=== PATIENT | female | born 1975 | race American Indian/Alaskan Native ===

== ENCOUNTER 2021-06-13 06:21 | Inpatient (IN) | payer OTHER ==
[2021-06-11 10:22] LABS: Basophils # (Auto) 0.1 K/mm3 (0.0-0.1); Eosinophils # (Auto) 0.1 K/mm3 (0.0-0.4); Hematocrit 35.1 % (30.3-42.9); Hemoglobin 10.9 gm/dl (10.1-14.3); Lymphocytes # (Auto) 1.6 K/mm3 (1.2-5.4); Lymphocytes % (Auto) 29.4 % (13.4-35.0); Mean Corpuscular HGB Conc 31 % (30-34); Mean Corpuscular Volume 79 fl (79-97); Monocytes # (Auto) 0.3 K/mm3 (0.0-0.8); Monocytes % (Auto) 6.1 % (0.0-7.3); Platelet Count 404 K/mm3 (140-440); Red Blood Count 4.43 M/mm3 (3.65-5.03); Red Cell Distribution Width 14.9 % (13.2-15.2)
--- NOTE | 2021-06-11 11:21 | Anesthesia Consultation ---
Anesthesia Consult and Med Hx Date of service: 06/13/21 - Airway Anesthetic Teeth Evaluation: Good (Braces) ROM Head & Neck: Adequate Mental/Hyoid Distance: Adequate Mallampati Class: Class II Intubation Access Assessment: Good - Pre-Operative Health Status ASA Pre-Surgery Classification: ASA2 Proposed Anesthetic Plan: General Nerve Block: TAP (Pt had lipo last Fall) - Pulmonary Hx Smoking: No Hx Sleep Apnea: No - Central Nervous System Hx Psychiatric Problems: No - Gastrointestinal Hx Gastroesophageal Reflux Disease: No - Hematic Hx Anemia: Yes (10.9/35.1) Hx Sickle Cell Disease: No - Other Systems Hx Alcohol Use: Yes (Occas) Hx Cancer: No Hx Obesity: Yes
[~2021-06-13 06:21] MED LIST: ACETAMINOPHEN 500 MG TAB PO NR; CELECOXIB 200 MG CAP PO NR; GABAPENTIN 300 MG CAP PO NR; LACTATED RINGERS 1,000 ML IV SCH; MAGNESIUM OXIDE 400 MG TAB PO NR; MIDAZOLAM 2 MG/2 ML INJ IV NR; fentaNYL 100 MCG/2 ML INJ IV NR
[2021-06-13] MEDS ORDERED: SODIUM CHLORIDE 0.9% IRR 1,500 ML BOTTLE IR ONE ×2 (07:18)
[2021-06-13] MEDS ORDERED: BUPIVACAINE/PF (0.25%) 2.5 MG/ML 30 ML VIAL INFILTRATI ONE (07:21)
[2021-06-13] MEDS ORDERED: dexAMETHasone 4 MG/ML VIAL ONE (07:21)
[2021-06-13] MEDS ORDERED: ROCURONIUM 50 MG/5 ML INJ IV ONE (07:31)
[2021-06-13] MEDS ORDERED: LIDOCAINE MPF (2%) 20 MG/1 ML VIAL 5 ML ONE (07:31)
[2021-06-13] MEDS ORDERED: ONDANSETRON 4 MG/2 ML INJ ONE (07:31)
[2021-06-13] MEDS ORDERED: fentaNYL 100 MCG/2 ML INJ ONE (07:32)
[2021-06-13] MEDS ORDERED: HYDROmorphone 1 MG/1 ML INJ ONE (07:32)
[2021-06-13] MEDS ORDERED: propofoL 200 MG/20 ML VIAL IV ONE (07:32)
--- NOTE | 2021-06-13 07:33 | Anesthesia Day of Surgery ---
Anesthesia Day of Surgery - Day of Surgery Patient Examined: Yes Patient H&P Reviewed: Yes Patient is NPO: Yes
[2021-06-13] MEDS ORDERED: CITRIC ACID-SOD CITRATE 500 ML IV ONE (07:39)
[2021-06-13] MEDS ORDERED: HYDROmorphone 1 MG/1 ML INJ IV PRN ×2 (08:00)
[2021-06-13] MEDS ORDERED: ceFAZolin/Water 2 GM/20 ML 2 GM/20 ML SYRINGE IV NR (08:00)
[2021-06-13] MEDS ORDERED: ONDANSETRON 4 MG/2 ML INJ IV PRN (08:00)
[2021-06-13] MEDS ORDERED: ceFAZolin/Water 2 GM/20 ML 2 GM/20 ML SYRINGE IV ONE (08:11)
--- NOTE | 2021-06-13 08:19 | History and Physical Report ---
History of Present Illness Date of examination: 06/13/21 Date of admission: 06/13/21 06:21 Chief complaint: I have heavy bleeding History of present illness: Pt is a 46 year old who presents today for TOMI secondary to menorrhagia and large uterine fibroids. Pt has had an ultrasound that showed a 24 cm fundal height. She presents today for definitive therapy. Past History Past Medical History: No medical history Past Surgical History: No surgical history Social history: Medications and Allergies Allergies Allergy/AdvReac Type Severity Reaction Status Date / Time amoxicillin Allergy Seizure Verified 06/06/21 17:15 gentamicin Allergy Seizure Verified 06/06/21 17:15 Home Medications Medication Instructions Recorded Confirmed Last Taken Type No Known Home Medications [No 06/06/21 06/06/21 Unknown History Reported Home Medications] Active Meds: Active Medications Acetaminophen (Acetaminophen 500 Mg Tab) 1,000 mg PO ONCE NR Stop: 06/13/21 20:00 Last Admin: 06/13/21 06:57 Dose: 1,000 mg Celecoxib (Celecoxib 200 Mg Cap) 400 mg PO PREOP NR Stop: 06/13/21 20:00 Last Admin: 06/13/21 06:58 Dose: 400 mg Fentanyl (Fentanyl 100 Mcg/2 Ml Inj) 100 mcg IV ONCE NR Stop: 06/13/21 12:00 Gabapentin (Gabapentin 300 Mg Cap) 300 mg PO PREOP NR Stop: 06/13/21 13:00 Last Admin: 06/13/21 06:56 Dose: 300 mg Hydromorphone HCl (Hydromorphone 1 Mg/1 Ml Inj) 0.25 mg IV Q10MIN PRN PRN Reason: Pain, Moderate (4-6) Stop: 06/13/21 18:00 Hydromorphone HCl (Hydromorphone 1 Mg/1 Ml Inj) 0.5 mg IV Q10MIN PRN PRN Reason: Pain , Severe (7-10) Stop: 06/13/21 18:00 Lactated Ringer's (Lactated Ringers) 1,000 mls @ 125 mls/hr IV DIRECT J CARLOS Last Admin: 06/13/21 06:59 Dose: 125 mls/hr Magnesium Oxide (Magnesium Oxide 400 Mg Tab) 400 mg PO ONCE NR Stop: 06/13/21 13:00 Last Admin: 06/13/21 06:59 Dose: 400 mg Methocarbamol (Methocarbamol 750 Mg Tab) 1,500 mg PO ONCE NR Stop: 06/13/21 13:00 Last Admin: 06/13/21 06:57 Dose: 1,500 mg Midazolam HCl (Midazolam 2 Mg/2 Ml Inj) 2 mg IV PREOP NR Stop: 06/13/21 23:59 Ondansetron HCl (Ondansetron 4 Mg/2 Ml Inj) 4 mg IV ONCE PRN PRN Reason: Nausea And Vomiting Stop: 06/13/21 17:00 Review of Systems All systems: negative - Constitutional fatigue - Genitourinary Genitourinary: dysmenorrhea, menorrhagia Menstruation: currently menstrual Exam Vital Signs Temp Pulse Resp BP Pulse Ox 98.9 F 79 16 125/77 100 06/11/21 09:50 06/11/21 09:50 06/11/21 09:50 06/11/21 09:50 06/11/21 09:50 - General physical appearance Positive: well developed, well nourished, no distress - Eyes Positive: PERRL, normal occular movement - ENT Positive: normal pinna, normal nares, normal mucosa, no hearing loss, no congestion - Respiratory Positive: normal expansion, normal respiratory effort, clear to auscultation - Cardiovascular Rhythm: regular Heart Sounds: Present: S1 & S2. Absent: rub, click - Extremities Extremities: no ischemia, pulses symmetrical, No edema - Breasts Breasts: deferred - Abdomen Abdomen: Present: soft, bowel sounds normal, masses - Genitourinary Female Genitourinary: other (markedly e nlarged) Results - Labs 06/11/21 09:55 Assessment and Plan PT here with fibroids and menorrhagia. Pt is consented for TOMI. Will proceed with surgery as scheduled.
[2021-06-13] MEDS ORDERED: dexAMETHasone 20 MG/5 ML VIAL ONE (08:48)
[2021-06-13] MEDS ORDERED: VASOPRESSIN 20 UNIT/1 ML INJ ONE (09:08)
[2021-06-13] MEDS ORDERED: SODIUM CHLORIDE 0.9% 100 ML ONE (09:08)
[2021-06-13] MEDS ORDERED: SODIUM CHLORIDE 0.9% 100 ML IVPB IV ONE (09:12)
[2021-06-13] MEDS ORDERED: VASOPRESSIN 20 UNIT/1 ML INJ IM ONE (09:13)
[2021-06-13] MEDS ORDERED: CITRIC ACID-SOD CITRATE SOLN 500 ML IV SOLN IV ONE (09:18)
[2021-06-13] MEDS ORDERED: NEOSTIGMINE 10MG/10 ML INJ MDV ONE (10:11)
[2021-06-13] MEDS ORDERED: GLYCOPYRROLATE 0.4 MG/2 ML INJ ONE ×2 (10:11)
[2021-06-13] MEDS ORDERED: LACTATED RINGERS 1,000 ML ONE (10:27)
--- NOTE | 2021-06-13 11:03 | Operative Report ---
Operative Report Operative Report: Preoperative diagnosis: Uterine fibroids Postoperative diagnosis: Same Procedure: Supracervical abdominal hysterectomy with RSO Surgeon: Dr. Madina Powell Replanting Machine Crewman: Lindsey Urbina MD EBL: 200 cc Urine output: 350 cc IV fluids: 1200 cc LR Cell saver return: 0 mL Findings: Markedly enlarged 24 week uterus secondary to multiple uterine fibroids of various sizes Specimens: Uterus, right tube and ovary Complications: Removal of right ovary secondary to enclosure with fibroid Procedure: The patient was admitted to the OR with IV running and in place. She was properly identified as herself. She was given general anesthesia without difficulty. She was then put a [place] catheter was in place and she was prepped and draped in normal sterile fashion. This incision was then made with the scalpel and carried to underlying fascia using the scalpel and the Bovie. Fascia was incised in midline and the incision was extended bilaterally using the curved Ellsworth scissors. The fascia was then dissected from the underlying rectus muscles in a series of sharp and blunt dissection. The peritoneum was entered sharply using the Metzenbaum scissors. The peritoneal incision was then extended superiorly and inferiorly. The uterus was grasped and delivered through the incision anteriorly. Multiple fibroids were noted some were pedunculated others were intramural. The largest fibroid appeared to be in the posterior wall of the uterus. At this point the uterus was injected with Pitressin solution in multiple areas totaling 25 cc. A large Luis retractor was placed into the incision, and the bowel was packed away with moist laparotomy sponges. Attention was first turned to the round ligaments b ilaterally they were grasped and transected with the LigaSure. Attention was turned to the right adnexa the broad ligament was dissected out however it was noted that there was a large fibroid adherent to the ovary. In trying to dissect the ovary away from the fibroid the IP ligament was compromised, such that the ovary had to be taken with the specimen. Attention was then turned to the left adnexa where there was a small fibroid just anterior to the uterine arteries on the left. On this side, the round ligament was identified suture- ligated and then transected using the LigaSure the broad ligament was dissected and the utero-ovarian artery was grasped cauterized and then transected. The left ovary was placed to the side. Following this the bladder flap was created anteriorly and the bladder pushed away using a moist sponge. The uterine arteries were then skeletonized bilaterally. Each uterine artery was grasped cauterized and transected using the LigaSure. Once this was done, decision was then made to amputate the uterus and convert the procedure to a supracervical hysterectomy. The uterus was then amputated at the level of the cervix with a scalpel. The specimen was then handed off. The cervical stump was grasped with a tenaculum, and then oversewn with a running suture of 0 Vicryl. The abdomen was then copiously irrigated for excellent hemostasis. A piece of bio defense was then placed over the cervical stump. Following this the all instruments were removed from the patient's abdomen. The muscles were reapproximated in a running fashion. Following this the fascia was closed in a running fashion using 0 Vicryl. Tissue was then copiously irrigated. Skin was closed in a running fashion using 3-0 Monocryl. The sponge lap needle and instrument counts were correct 2. The patient tolerated the procedure well. She was taken to recovery in stable condition.
[2021-06-13] MEDS ORDERED: MORPHINE 4 MG/1 ML INJ IV PRN (15:32)
[2021-06-13] MEDS ORDERED: ACETAMINOPHEN 325 MG TAB PO PRN (15:32)
[2021-06-13] MEDS ORDERED: ONDANSETRON 4 MG ODT TAB PO PRN (15:32)
[2021-06-13] MEDS: LACTATED RINGERS 1000 ML IV SOLN IV SCH ×2 (16:05→22:47)
[2021-06-13] MEDS: oxyCODONE /ACETAMINOPHEN 5-325MG TAB PO PRN ×2 (16:05→22:49)
[2021-06-13] MEDS ORDERED: ESTRADIOL 0.1 MG/24 HR PATCH WEEKLY TD SCH (18:00)
--- NOTE | 2021-06-13 18:10 | Post Anesthesia Evaluation ---
- Post Anesthesia Evaluation Patient Participated: Yes Airway Patent: Yes Stable Respiratory Function: Yes Nausea/Vomiting: No Temp > 96.8F: Yes Pain Manageable: Yes Adequeate Hydration: Yes Anesthesia Complications: No Block Receding Appropriately: Yes Patient on Ventilator: No
[2021-06-13] MEDS: DOCUSATE SODIUM 100 MG CAP PO SCH (22:47)
[2021-06-14] MEDS: IBUPROFEN 800 MG TAB PO PRN ×2 (04:32→12:36)
[2021-06-14 04:59] LABS: Hematocrit 29.7 % (30.3-42.9); Hemoglobin 9.8 gm/dl (10.1-14.3)
[2021-06-14] MEDS: LACTATED RINGERS 1000 ML IV SOLN IV SCH (06:04)
[2021-06-14] MEDS: oxyCODONE /ACETAMINOPHEN 5-325MG TAB PO PRN ×2 (08:21→17:32)
[2021-06-14] MEDS: MAGNESIUM HYDROXIDE (MOM) ORAL LIQD UDC PO PRN (08:21)
[2021-06-14] MEDS: DOCUSATE SODIUM 100 MG CAP PO SCH (08:22)
--- NOTE | 2021-06-14 14:02 | Event Note ---
Date: 06/14/21 A: POD#1; S/P TOMI P: Continue current orders Voiding without difficulty Tolerating po solids/fluids Passing some flatus Continue to ambulate as tolerated Anticipate d/c home tomorrow S: "I feel pretty good, trying to get some more of this gas out". "Pain is ok" O: VSS Resting comfortably, no acute distress noted
[2021-06-15] MEDS: IBUPROFEN 800 MG TAB PO PRN (00:25)
[2021-06-15] MEDS: DOCUSATE SODIUM 100 MG CAP PO SCH ×2 (00:25→10:40)
[2021-06-15] MEDS: oxyCODONE /ACETAMINOPHEN 5-325MG TAB PO PRN ×2 (05:52→14:43)
[2021-06-15] MEDS: MAGNESIUM HYDROXIDE (MOM) ORAL LIQD UDC PO PRN (05:53)
--- NOTE | 2021-06-15 14:44 | Discharge Summary ---
Providers - Providers Date of Admission: 06/13/21 06:21 Date of discharge: 06/15/21 Attending physician: IVANA WAGNER Primary care physician: [facility] [facility] [employer] [facility] Hospitalization Reason for admission: other (menorrhagia) Procedure: other (TOMI) Episiotomy: none Incision: dressed (no shadow drainage or bleeding noted) Discharge diagnosis: other (S/P TOMI) Hospital course: Pt is a 46 year old who presents today for TOMI secondary to menorrhagia and large uterine fibroids. Pt has had an ultrasound that showed a 24 cm fundal height. She presents today for definitive therapy. Post-op course has been uncomplicated, tolerating po well, voiding and has had a BM. Has met d/c criteria on POD#2. Condition at discharge: Stable Disposition: 01 HOME / SELF CARE / HOMELESS - Discharge Diagnoses (1) S/P TOMI (total abdominal hysterectomy) Status: Acute (2) Anemia Status: Acute Qualifiers: Anemia type: other cause Other causes of anemia: acute posthemorrhagic Qualified Code(s): D62 - Acute posthemorrhagic anemia Comment: Asymptomatic Increase iron rich foods into diet Plan - Discharge Medications Prescriptions: Ibuprofen [Motrin] 800 mg PO Q8HR PRN #60 tablet PRN Reason: Pain , Severe (7-10) oxyCODONE /ACETAMINOPHEN [Percocet 5/325] 1 tab PO Q6HR PRN #30 tablet PRN Reason: Pain - Provider Discharge Summary Activity: routine, no sex for 6 weeks, no heavy lifting 4 weeks, no strenuous exercise Diet: other (Iron rich diet) Instructions: routine Additional instructions: [] Smoking cessation referral if applicable(refer to patient education folder for contact #) [] Refer to [facility] Booklet Call your doctor immediately for: * Fever > 100.5 * Heavy vaginal bleeding ( >1 pad per hour) * Severe persistent headache * Shortness of breath * Reddened, hot, painful area to leg or breast * Drainage or odor from incision. * Keep incision clean and dry at all times and follow doctor's instructions regarding bathing/showering * Contact office on 06/16/21 concerning dressing removal and further follow-up instructions - Follow up plan Follow up: PRIMARY CARE, [Primary Care Provider] - 48 Hours
[2021-06-15 16:03] VITALS: BP 125/89
== END 2021-06-15 16:20 | disposition home or self-care (01) | DRG 742 ==
LOC: 3A 06:21 → OB 11:07
PROVIDERS: ADMIT Obstetrics & Gynecology; ATTEND Obstetrics & Gynecology
PROC: 0UT90ZL Resection of Uterus, Supracervical, Open Approach (ICD-10-PCS; principal; 2021-06-13)
PROC: 0UB00ZZ Excision of Right Ovary, Open Approach (ICD-10-PCS; 2021-06-13)
PROC: 0UB50ZZ Excision of Right Fallopian Tube, Open Approach (ICD-10-PCS; 2021-06-13)
PROC: 30233H0 Transfusion of Autologous Whole Blood into Peripheral Vein, Percutaneous Approach (ICD-10-PCS; 2021-06-13)
DX: D25.9 Leiomyoma of uterus, unspecified (principal); D62 Acute posthemorrhagic anemia; Z20.822 Contact with and (suspected) exposure to COVID-19; N92.0 Excessive and frequent menstruation with regular cycle; Z88.8 Allergy status to other drugs, medicaments and biological substances
CPT/HCPCS: 36415; 64450; 84703; 85014; 85018; 85025; 86850; 86900; 86901; 88307; G0378; J1815; J3490; J7120; J0690; J1100; J1170; J2250; J2405; J2704; J2710; J3010; Q4140; U0003